=== PATIENT | female | born 1995 | race African-American/Black ===

== ENCOUNTER 2022-11-17 19:55 | Emergency (ER) | payer OTHER ==
[~2022-11-17] VITALS: Ht 162 cm; Wt 95.2 kg
[2022-11-17] MEDS ORDERED: ORPHENADRINE 60 MG/2 ML AMP (ED ONLY) IV ONE (20:00)
[2022-11-17] MEDS ORDERED: KETOROLAC INJ 15 MG/ML VIAL IVP ONE (20:00)
--- NOTE | 2022-11-17 20:05 | ED Chest Pain ---
General Stated Complaint: CHEST PAIN Source: patient Exam Limitations: no limitations History of Present Illness Date Seen by Provider: Nov 17, 2022 Time Seen by Provider: 19:47 Initial Comments 27-year-old female presents to the ER via EMS with complaint of intermittent chest pain since September 09. She states the pain radiates into her right shoulder and right neck. States the pain is worse with moving her head and neck. She denies injury to her shoulder, chest, neck. She states the pain feels like somebody is sitting on her chest. Reports that the pain lasts for a couple minutes at a time, and dissipates for few minutes at a time. She states she has shortness of air with the pain, no shortness of air when the pain is gone. She sees a plasterer spot at [place] for her mitral tricuspid pulmonic insufficiency. Allergies and Home Medications Allergies Coded Allergies: No Known Drug Allergies (Unverified , 11/17/22) Patient Home Medication List Home Medication List Reviewed: Yes Cyclobenzaprine HCl (Cyclobenzaprine HCl) 10 Mg Tablet, 10 MG PO TID Prescribed by: Lorie Tim on 11/17/222123 Review of Systems Review of Systems Constitutional: see HPI Physical Exam Vital Signs Vital Signs - First Documented 11/17/22 19:56 Temp 37.3 Pulse 101 Resp 20 B/P (MAP) 126/98 (107) Pulse Ox 99 O2 Delivery Room Air Capillary Refill : Height, Weight, BMI Height: '" Weight: lbs. oz. kg; BMI Method: General Appearance: No Apparent Distress Neck: Normal Inspection, Supple, Tender Lateral Respiratory: Chest Non Tender, Lungs Clear, Normal Breath Sounds, No Accessory Muscle Use, No Respiratory Distress Cardiovascular: Regular Rate, Rhythm Extremity: Normal Inspection, Normal Range of Motion, No Pedal Edema Neurologic/Psychiatric: Alert, Normal Mood/Affect Skin: Normal Color, Warm/Dry Progress/Results/Core Measures Results/Orders Lab Results Laboratory Tests Test 11/17/22 19:55 Range/Units White Blood Count 9.5 4.3-11.0 10^3/uL Red Blood Count 3.54 L 3.80-5.11 10^6/uL Hemoglobin 9.4 L 11.5-16.0 g/dL Hematocrit 30 L 35-52 % Mean Corpuscular Volume 85 80-99 fL Mean Corpuscular Hemoglobin 27 25-34 pg Mean Corpuscular Hemoglobin Concent 31 L 32-36 g/dL Red Cell Distribution Width 17.0 H 10.0-14.5 % Platelet Count 384 130-400 10^3/uL Mean Platelet Volume 10.3 9.0-12.2 fL Immature Granulocyte % (Auto) 0 % Neutrophils (%) (Auto) 57 42-75 % Lymphocytes (%) (Auto) 33 12-44 % Monocytes (%) (Auto) 8 0-12 % Eosinophils (%) (Auto) 2 0-10 % Basophils (%) (Auto) 0 0-10 % Neutrophils # (Auto) 5.3 1.8-7.8 10^3/uL Lymphocytes # (Auto) 3.1 1.0-4.0 10^3/uL Monocytes # (Auto) 0.8 0.0-1.0 10^3/uL Eosinophils # (Auto) 0.2 0.0-0.3 10^3/uL Basophils # (Auto) 0.0 0.0-0.1 10^3/uL Immature Granulocyte # (Auto) 0.0 0.0-0.1 10^3/uL Prothrombin Time 12.6 12.2-14.7 SEC INR Comment 0.9 0.8-1.4 Activated Partial Thromboplast Time 33 24-35 SEC Sodium Level 139 135-145 MMOL/L Potassium Level 4.4 3.6-5.0 MMOL/L Chloride Level 108 H 98-107 MMOL/L Carbon Dioxide Level 21 21-32 MMOL/L Anion Gap 10 5-14 MMOL/L Blood Urea Nitrogen 13 7-18 MG/DL Creatinine 0.77 0.60-1.30 MG/DL Estimat Glomerular Filtration Rate 108 BUN/Creatinine Ratio 17 Glucose Level 108 H 70-105 MG/DL Calcium Level 8.7 8.5-10.1 MG/DL Corrected Calcium 8.9 8.5-10.1 MG/DL Magnesium Level 2.0 1.6-2.4 MG/DL Total Bilirubin 0.2 0.1-1.0 MG/DL Aspartate Amino Transf (AST/SGOT) 38 H 5-34 U/L Alanine Aminotransferase (ALT/SGPT) 56 H 0-55 U/L Alkaline Phosphatase 92 40-136 U/L Troponin I < 0.028 <0.028 NG/ML Total Protein 7.0 6.4-8.2 GM/DL Albumin 3.8 3.2-4.5 GM/DL My Orders Orders - LORIE STOVALL APRN Cbc With Automated Diff (11/17/22 19:59) Magnesium (11/17/22 19:59) Chest 1 View, Ap/Pa Only (11/17/22 19:59) Ekg Tracing (11/17/22 19:59) Comprehensive Metabolic Panel (11/17/22 19:59) Protime With Inr (11/17/22 19:59) Partial Thromboplastin Time (11/17/22 19:59) Monitor-Rhythm Ecg Trace Only (11/17/22 19:59) Ed Iv/Invasive Line Start (11/17/22 19:59) Troponin I [place] (11/17/22 19:59) Orphenadrine Inj (Ed Only) (Orphenadrine (11/17/22 20:00) Ketorolac Injection (Ketorolac Injection (11/17/22 20:00) Rx-Cyclobenzaprine Tablet (Rx-Flexeril T (11/17/22 21:21) Medications Given in ED Current Medications Medications Dose Ordered Sig/Marty Route Start Time Stop Time Status Last Admin Dose Admin Ketorolac Tromethamine 15 mg ONCE ONCE IVP 11/17/22 20:00 11/17/22 20:01 DC 11/17/22 20:18 15 MG Orphenadrine Citrate 60 mg ONCE ONCE IV 11/17/22 20:00 11/17/22 20:01 DC 11/17/22 20:18 60 MG Vital Signs/I&O 11/17/22 11/17/22 19:56 21:30 Temp 37.3 37.3 Pulse 101 101 Resp 20 20 B/P (MAP) 126/98 (107) 126/98 Pulse Ox 99 99 O2 Delivery Room Air Room Air Progress Progress Note : Progress Note Patient seen and evaluated, resting comfortably in bed, no acute distress. Based on exam and symptoms, cardiac work-up initiated including CBC, CMP, magnesium, coags, troponin, EKG, chest x-ray. Pain seems to be musculoskeletal. Will treat with Toradol and Norflex. 2119 Labs, chest x-ray, EKG reviewed. EKG shows normal sinus rhythm. CBC shows anemia, hemoglobin 9.4, hematocrit 30, MCV normal 85. CMP shows slightly elevated chloride 108, magnesium normal, troponin negative. AST and ALT slightly elevated. Coags normal. Chest x-ray shows no acute cardiopulmonary process. Results discussed with patient. Will discharge patient with prescription for Flexeril. Discharge instructions and return precautions provided. Initial ECG Impression Date: Nov 17, 2022 Initial ECG Impression Time: 20:05 Initial ECG Rate: 93 Initial ECG Rhythm: Normal Sinus Initial ECG Intervals: Normal Initial ECG Impression: Normal Initial ECG Comparisson: No Previous ECG Available Diagnostic Imaging Diagonstic Imaging: Xray Plain Films/CT/US/NM/MRI: chest Comments [facility] [place], [place] NAME: DAVID COOPER [facility] REC#: [id number] PT STATUS: REG ER : 1995 PHYSICIAN: LORIE STOVALL APRN ADMIT DATE: 11/17/22/ER Signed Date of Exam:11/17/22 CHEST 1 VIEW, AP/PA ONLY EXAMINATION: Chest 1 view HISTORY: Chest pain. Headaches. COMPARISON: None available. FINDINGS: The lung volumes are normal. No focal consolidation is seen. No large pleural effusion or pneumothorax is seen. The cardiomediastinal silhouette is normal in size and contour. No acute osseous abnormality is seen. IMPRESSION: 1. No acute pleuroparenchymal process. Dictated by: Dictated on workstation # [id number] Dict: 11/17/222099 Trans: 11/17/222106 [facility] [id number] Interpreted by: NAYE EVANS DO Electronically signed by: NAYE EVANS DO 11/17/222106 Departure Impression Primary Impression: Chest pain Additional Impression: Musculoskeletal pain Disposition: 01 HOME, SELF-CARE Condition: Stable Departure-Patient Inst. Decision time for Depature: 21:23 Patient Instructions: Chest Pain That Is Not Caused by the Heart (DC) Add. Discharge Instructions: Follow-up with your primary care provider. Follow-up with your plasterer spot. Take Flexeril up to 3 times a day as needed for pain. It may make you sleepy. Return for any new, concerning, or worsening symptoms. Scripts Cyclobenzaprine HCl (Cyclobenzaprine HCl) 10 Mg Tablet 10 MG PO TID, #20 TAB 0 Refills Prov: LORIE STOVALL APRN 11/17/22 LORIE STOVALL APRN Nov 17, 2022 20:05
[2022-11-17 20:09] LABS: BASOPHILS % (AUTO) 0 % (0-10); EOSINOPHILS # (AUTO) 0.2 10^3/uL (0.0-0.3); EOSINOPHILS % (AUTO) 2 % (0-10); HEMATOCRIT 30 % (35-52); HEMOGLOBIN 9.4 g/dL (11.5-16.0); LYMPHOCYTES # (AUTO) 3.1 10^3/uL (1.0-4.0); LYMPHOCYTES % (AUTO) 33 % (12-44); MEAN CORPUSCULAR HEMOGLOBIN 27 pg (25-34); MEAN CORPUSCULAR HGB CONC 31 g/dL (32-36); MEAN CORPUSCULAR VOLUME 85 fL (80-99); MEAN PLATELET VOLUME 10.3 fL (9.0-12.2); MONOCYTES # (AUTO) 0.8 10^3/uL (0.0-1.0); MONOCYTES % (AUTO) 8 % (0-12); NEUTROPHILS # (AUTO) 5.3 10^3/uL (1.8-7.8); NEUTROPHILS % (AUTO) 57 % (42-75); PLATELET COUNT 384 10^3/uL (130-400); WHITE BLOOD COUNT 9.5 10^3/uL (4.3-11.0)
[2022-11-17 20:18] LABS: INR 0.9 (0.8-1.4); PROTHROMBIN TIME PATIENT 12.6 SEC (12.2-14.7)
[2022-11-17 20:32] LABS: ALANINE AMINOTRANSFERASE 56 U/L (0-55); ALBUMIN 3.8 GM/DL (3.2-4.5); ALKALINE PHOSPHATASE 92 U/L (40-136); BILIRUBIN,TOTAL 0.2 MG/DL (0.1-1.0); BUN/CREATININE RATIO 17; CALCIUM 8.7 MG/DL (8.5-10.1); CARBON DIOXIDE 21 MMOL/L (21-32); CHLORIDE 108 MMOL/L (98-107); CREATININE SERUM 0.77 MG/DL (0.60-1.30); GFR ESTIMATED 108; GLUCOSE 108 MG/DL (70-105); POTASSIUM 4.4 MMOL/L (3.6-5.0); SODIUM 139 MMOL/L (135-145)
--- NOTE | 2022-11-17 21:05 | Diagnostic Imaging Report ---
EXAMINATION: Chest 1 view HISTORY: Chest pain. Headaches. COMPARISON: None available. FINDINGS: The lung volumes are normal. No focal consolidation is seen. No large pleural effusion or pneumothorax is seen. The cardiomediastinal silhouette is normal in size and contour. No acute osseous abnormality is seen. IMPRESSION: 1. No acute pleuroparenchymal process. Dictated by: Dictated on workstation # [id number]
[2022-11-17] MEDS ORDERED: RX-CYCLOBENZAPRINE 10 MG (FLEXERIL) TAB PPK#3 PO STA (21:21)
[2022-11-17] MEDS ORDERED: CYCL10TA25 PO (21:24)
[2022-11-17 21:30] VITALS: BP 126/98
== END 2022-11-17 21:30 | disposition home or self-care (01) ==
LOC: EDUNIT# 19:55 → ER 19:56
DX: R07.9 Chest pain, unspecified (principal); R51.9 Headache, unspecified; M54.2 Cervicalgia; D64.9 Anemia, unspecified
CPT/HCPCS: 36415; 71045; 80053; 83735; 84484; 85025; 85610; 85730; 93005; 93041

== ENCOUNTER → 2022-11-22 | Outpatient (CLI) | payer OTHER ==
[~2022-11-22] MED LIST: CYCL10TA25 PO
--- NOTE | 2022-11-22 10:33 | Diagnostic Imaging Report ---
INDICATION: Incomplete bladder emptying. Limited pelvic ultrasound was performed to evaluate the bladder. Prevoid bladder volume is 125 mL. Postvoid volume is 121 mL. Bilateral ureteral jets were visualized. No bladder wall thickening or mass is identified. IMPRESSION: Moderate postvoid residual bladder volume. No other abnormality is detected. Dictated by: Dictated on workstation # [id number]
== END ==
LOC: RAD 09:55
PROVIDERS: ATTEND Nurse Practitioner Family
DX: R33.9 Retention of urine, unspecified (principal)
CPT/HCPCS: 76857

== ENCOUNTER 2022-12-08 17:39 | Emergency (ER) | payer OTHER ==
[~2022-12-08] VITALS: Ht 170 cm; Wt 104.0 kg
--- NOTE | 2022-12-08 18:04 | ED Abdominal Pain ---
General Stated Complaint: ABD PAIN, RADIATING TO LOWER BACK, BLOATED Source of Information: Patient History of Present Illness Date Seen by Provider: Dec 08, 2022 Time Seen by Provider: 17:50 Initial Comments PT ARRIVES VIA POV C/O LOWER ABDOMINAL PAIN AND LOWER BACK PAIN FOR "COUPLE OF MONTHS OR LONGER" + NAUSEA, VOMITED X 2 TODAY HAD BM THIS AM--CONSTIPATED "BIG HARD BALLS" HAS CHRONIC URINARY ISSUES--PROBLEMS EMPTYING BLADDER, NO DIFFERENT TODAY NO FEVER HAS BEEN HAVING IRREGULAR VAGINAL BLEEDING FOR MONTHS 1 WEEK AGO, SHE HAD BRIGHT RED BLOOD WITH CLOTS FOR 2 DAYS, THEN YESTERDAY AND TODAY SHE HAS BEEN HAVING "BROWN BLOOD AND PASSED A CLOT" TODAY PT IS NOT ON CONTROL TOOK 1 IBUPROFEN AND 1 TYLENOL YESTERDAY/LAST NIGHT HAS NOT TAKEN ANYTHING TODAY FOR PAIN SHE HAS NOT SOUGHT CARE AT ANY TIME FOR THIS SYMPTOMS NO DIFFERENT TODAY SHE WAS HERE 11/17/22 FOR C/O CHEST PAIN--WORK UP WAS BENIGN AT THAT TIME--PT'S ONLY OTHER VISIT HERE STATES SHE HAS BEEN TO [facility] "EVERY WEEK FOR THE LAST COUPLE OF MONTHS" --BUT HAS NOT DISCUSSED THIS PROBLEM STATES HE WAS THERE YESTERDAY FOR DENTAL PAIN --GIVEN RX FOR AMOXIL PT IS CURRENTLY AT [facility]--PT IS AN IV METHAMPHETAMINE USER. SHE DENIES ANY RECENT USE DENIES ALCOHOL USE SHE VAPES AND SMOKES PT WAS IN [facility] IN [place] FOR 2 MONTHS, GOT OUT NOV 03. SHE CLAIMS SHE HAS BEEN ON MULTIPLE ANTIBIOTICS FOR THE LAST COUPLE OF MONTHS, BUT DOES NOT KNOW WHAT ANTIBIOTICS OR WHAT SHE WAS BEING TREATED FOR. HAS HAD X 4, NO OTHER ABDOMINAL SURGERIES DENIES ANY OTHER MEDICAL PROBLEMS PCP: [facility] Allergies and Home Medications Allergies Coded Allergies: No Known Drug Allergies (Unverified , 11/17/22) Patient Home Medication List Home Medication List Reviewed: Yes Cyclobenzaprine HCl (Cyclobenzaprine HCl) 10 Mg Tablet, 10 MG PO TID Prescribed by: Lorie Tim on 11/17/222123 Doxycycline Hyclate (Doxycycline Hyclate) 100 Mg Tablet, 100 MG PO BID Prescribed by: CRISTOBAL BOWER on 12/08/221910 Ketorolac Tromethamine (Ketorolac Tromethamine) 10 Mg Tablet, 10 MG PO Q6H Prescribed by: CRISTOBAL BOWER on 12/08/221910 Metronidazole (Metronidazole) 500 Mg Tablet, 500 MG PO QID Prescribed by: CRISTOBAL BOWER on 12/08/221910 Review of Systems Review of Systems Constitutional: no symptoms reported Respiratory: No Symptoms Reported Cardiovascular: No Symptoms Reported Gastrointestinal: See HPI Genitourinary: See HPI Musculoskeletal: see HPI Skin: no symptoms reported Psychiatric/Neurological: No Symptoms Reported Endocrine: No Symptoms Reported Hematologic/Lymphatic: No Symptoms Reported Past Hucvrsj-Gatfhg-Najjku Hx Patient Social History Tobacco Use?: Yes Tobacco type used: Cigarettes Smoking Status: Current Everyday Smoker Use of E-Cig and/or Vaping dev: Yes E-Cig or Vaping type used: Nicotine Use of E-Cig and/or Vaping Ming: Current Everyday User Substance use?: Yes Substance type: Methamphetamine Additional substance use comme: +IV METH USE Substance frequency: Daily Alcohol Use?: No Past Medical History Surgery/Hospitalization HX: Mitral Triscupid Insuff Surgeries: Yes ( X 4) Section, Tonsillectomy Respiratory: No Cardiac: 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 oz. kg; 36.00 BMI Method: General Appearance: WD/WN, no apparent distress, other (CONSTANT MOVEMENTS) HEENT: other (EXTENSIVE DENTAL DECAY WITH MULTIPLE MISSING TEETH AND REMAINING TEEHT DECAYED DOWN TO GUMS) Respiratory: normal breath sounds, no respiratory distress, no accessory muscle use Cardiovascular: regular rate, rhythm, no edema, no JVD, no murmur Gastrointestinal: normal bowel sounds, soft, no organomegaly, no pulsatile mass; No distended, No guarding, No rebound; tenderness (DIFFUSE TENDERNESS, BUT IS MOST TENDER IN RLQ > LLQ); No hernia, No mass Extremities: normal inspection, normal capillary refill Back: normal inspection, no CVA tenderness Pelvic: normal external exam, no masses, discharge, tender w/ cervical motion (MARKED), tender adnexa (ON RIGHT), tender uterus, other (SCANT AMOUNT OF BROWN DISCHARGE) 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, no motor/sensory deficits, alert, oriented x 3 Skin: normal color, warm/dry Progress/Results/Core Measures Results/Orders Lab Results Laboratory Tests Test 12/08/22 17:59 12/08/22 18:12 12/08/22 19:00 Range/Units Urine Color YELLOW Urine Clarity CLEAR Urine pH 5.5 5-9 Urine Specific Cameron >=1.030 1.016-1.022 Urine Protein NEGATIVE NEGATIVE Urine Glucose (UA) NEGATIVE NEGATIVE Urine Ketones NEGATIVE NEGATIVE Urine Nitrite NEGATIVE NEGATIVE Urine Bilirubin NEGATIVE NEGATIVE Urine Urobilinogen 0.2 < = 1.0 MG/DL Urine Leukocyte Esterase NEGATIVE NEGATIVE Urine RBC (Auto) 2+ H NEGATIVE Urine RBC RARE /HPF Urine WBC 0-2 /HPF Urine Squamous Epithelial Cells 2-5 /HPF Urine Crystals NONE /LPF Urine Bacteria TRACE /HPF Urine Casts NONE /LPF Urine Mucus NEGATIVE /LPF Urine Culture Indicated NO Urine Opiates Screen NEGATIVE NEGATIVE Urine Oxycodone Screen NEGATIVE NEGATIVE Urine Methadone Screen NEGATIVE NEGATIVE Urine Propoxyphene Screen NEGATIVE NEGATIVE Urine Barbiturates Screen NEGATIVE NEGATIVE Ur Tricyclic Antidepressants Screen POSITIVE H NEGATIVE Urine Phencyclidine Screen NEGATIVE NEGATIVE Urine Amphetamines Screen NEGATIVE NEGATIVE Urine Methamphetamines Screen NEGATIVE NEGATIVE Urine Benzodiazepines Screen POSITIVE H NEGATIVE Urine Cocaine Screen NEGATIVE NEGATIVE Urine Cannabinoids Screen NEGATIVE NEGATIVE White Blood Count 9.5 4.3-11.0 10^3/uL Red Blood Count 3.91 3.80-5.11 10^6/uL Hemoglobin 10.0 L 11.5-16.0 g/dL Hematocrit 32 L 35-52 % Mean Corpuscular Volume 81 80-99 fL Mean Corpuscular Hemoglobin 26 25-34 pg Mean Corpuscular Hemoglobin Concent 32 32-36 g/dL Red Cell Distribution Width 16.4 H 10.0-14.5 % Platelet Count 374 130-400 10^3/uL Mean Platelet Volume 9.8 9.0-12.2 fL Immature Granulocyte % (Auto) 1 % Neutrophils (%) (Auto) 50 42-75 % Lymphocytes (%) (Auto) 37 12-44 % Monocytes (%) (Auto) 10 0-12 % Eosinophils (%) (Auto) 2 0-10 % Basophils (%) (Auto) 1 0-10 % Neutrophils # (Auto) 4.7 1.8-7.8 10^3/uL Lymphocytes # (Auto) 3.5 1.0-4.0 10^3/uL Monocytes # (Auto) 0.9 0.0-1.0 10^3/uL Eosinophils # (Auto) 0.2 0.0-0.3 10^3/uL Basophils # (Auto) 0.1 0.0-0.1 10^3/uL Immature Granulocyte # (Auto) 0.1 0.0-0.1 10^3/uL Percent Immature Platelet Fraction 2.7 0.0-7.6 % Sodium Level 138 135-145 MMOL/L Potassium Level 4.2 3.6-5.0 MMOL/L Chloride Level 106 98-107 MMOL/L Carbon Dioxide Level 21 21-32 MMOL/L Anion Gap 11 5-14 MMOL/L Blood Urea Nitrogen 12 7-18 MG/DL Creatinine 0.74 0.60-1.30 MG/DL Estimat Glomerular Filtration Rate 113 BUN/Creatinine Ratio 16 Glucose Level 77 70-105 MG/DL Calcium Level 8.9 8.5-10.1 MG/DL Corrected Calcium 9.0 8.5-10.1 MG/DL Total Bilirubin 0.2 0.1-1.0 MG/DL Aspartate Amino Transf (AST/SGOT) 39 H 5-34 U/L Alanine Aminotransferase (ALT/SGPT) 46 0-55 U/L Alkaline Phosphatase 140 H 40-136 U/L Total Protein 7.5 6.4-8.2 GM/DL Albumin 3.9 3.2-4.5 GM/DL Amylase Level 81 25-125 U/L Lipase 30 8-78 U/L Serum Alcohol < 10 <10 MG/DL Smear Scan YES Micro Results Microbiology My Orders Orders - CRISTOBAL BOWER DO Ed Iv/Invasive Line Start (12/08/22 17:53) Urine Bedside (12/08/22 17:53) Amylase (12/08/22 17:53) Cbc And Automated Diff (12/08/22 17:53) Comprehensive Metabolic Panel (12/08/22 17:53) Drug Screen Stat (Urine) (12/08/22 17:53) Lipase (12/08/22 17:53) Ua Culture If Indicated (12/08/22 17:53) Alcohol (12/08/22 17:58) Ct Abd/Pelv W (Appendicitis) (12/08/22 18:31) Iohexol Injection (Omnipaque 350 Mg/Ml 1 (12/08/22 18:45) Received Contrast (Hold Metformin- Contr (12/08/22 18:45) Ns (Ivpb) 100 Ml (Sodium Chloride 0.9% 1 (12/08/22 18:45) Neisseria Gonorrhea Swab (12/08/22 19:01) Chlam Dna Probe (12/08/22 19:01) Genital Culture (12/08/22 19:01) Wet Prep (12/08/22 19:01) Ceftriaxone Iv/Im (Ceftriaxone Iv/Im) (12/08/22 19:01) Azithromycin Tablet (Azithromycin Tabl (12/08/22 19:01) Ketorolac Injection (Ketorolac Injection (12/08/22 19:01) Rpr With Fta-Abs Reflex If Pos (12/08/22 19:01) Hepatitis Panel Acute (12/08/22 19:56) Hiv 1/2 Antibody (12/08/22 19:56) Medications Given in ED Current Medications Medications Dose Ordered Sig/Marty Route Start Time Stop Time Status Last Admin Dose Admin Iohexol 100 ml ONCE ONCE IV 12/08/22 18:45 12/08/22 18:46 DC 12/08/22 18:48 80 ML Sodium Chloride 100 ml ONCE ONCE IV 12/08/22 18:45 12/08/22 18:46 DC 12/08/22 18:48 80 ML Vital Signs/I&O 12/08/22 12/08/22 18:01 19:37 Temp 37.3 Pulse 86 Resp 16 B/P (MAP) 157/99 (118) 137/76 Pulse Ox 98 O2 Delivery Room Air Progress Progress Note : Progress Note VITALS ON ARRIVAL: TEMP 37.3=99.2, HR 86, RR 16, BP 157/99, O2 SAT 98% ON ROOM AIR GIVEN: -TORADOL -ROCEPHIN + ZITHROMAX LABS: -CBC NORMAL -CMP NORMAL -AMYLASE/LIPASE -HCG NEGATIVE -ETOH NEGATIVE -UDS + TRICYCLICS AND BENZO'S -UA UNREMARKABLE GENITAL CULTURES PENDING ADDITIONAL TESTS FOR HIV, HEPATITIS, SYPHILIS PENDING CT SCAN SHOWS CONSTIPATION, NO ACUTE PROCESS DISCUSSED TEST RESULTS, ANTICIPATED COURSE, SYMPTOMATIC TREATMENT, MEDICATIONS, NEED FOR FOLLOW UP AND RETURN PRECAUTIONS REVIEWED PRIOR ER RECORD Diagnostic Imaging Comments CT ABDOMEN/PELVIS--PER RADIOLOGIST REPORT AT 1908 FINDINGS: The visualized lung bases are clear. The bones show no significant abnormality. The liver, spleen, pancreas, gallbladder, and adrenal glands are unremarkable. Both kidneys are unremarkable with no hydronephrosis, stone, or mass. The bladder is fluid-filled and otherwise unremarkable. The uterus and adnexal structures are unremarkable as visualized on CT. There is very minimal free fluid in the pelvis which may be physiologic. There is a moderate to large amount of stool seen throughout the colon from the rectum all the way to the right colon. There is no evidence of intestinal obstruction. The appendix is unremarkable. There is no intra-abdominal free air. There is no lymphadenopathy. There is a moderately distended stomach with ingested material noted. The extraabdominal and extrapelvic soft tissue structures are unremarkable. IMPRESSION: 1: There is a moderate to large amount of stool throughout the colon which may be seen with constipation. There is no intestinal obstruction. 2: The remainder of this CT exam shows no other significant abnormality. There is no significant abnormality in the pelvis seen. Reviewed: Reviewed by Me Departure Impression Primary Impression: PID (acute pelvic inflammatory disease) Additional Impressions: Irregular menstrual bleeding Constipation Disposition: 01 HOME, SELF-CARE Condition: Stable Departure-Patient Inst. Decision time for Depature: 19:10 Referrals: [facility] (PCP/Family) Primary Care Physician Patient Instructions: Bleeding Between Periods, Constipation, Adult (DC), Pelvic Inflammatory Disease ED Add. Discharge Instructions: TAKE MIRALAX DAILY INCREASE YOUR WATER AND FIBER INTAKE NOTHING IN VAGINA--NO TAMPONS, DOUCHING OR INTERCOURSE FOLLOW UP WITH [facility] IN 7-10 DAYS FOR FURTHER CARE--CALL IN THE MORNING TO SCHEDULE AN APPOINTMENT Scripts Ketorolac Tromethamine (Ketorolac Tromethamine) 10 Mg Tablet 10 MG PO Q6H for Pain, #15 TAB Prov: CRISTOBAL BOWRE DO 12/08/22 Metronidazole (Metronidazole) 500 Mg Tablet 500 MG PO QID, #40 TAB Prov: CRISTOBAL BOWER DO 12/08/22 Doxycycline Hyclate (Doxycycline Hyclate) 100 Mg Tablet 100 MG PO BID, #20 TAB 0 Refills Prov: CRISTOBAL BOWER DO 12/08/22 Work/School Note: Work Release Form Date Seen in the Emergency Department: Dec 08, 2022 CRISTOBAL BOWER DO Dec 08, 2022 18:04
[2022-12-08 18:19] LABS: BASOPHILS # (AUTO) 0.1 10^3/uL (0.0-0.1); BASOPHILS % (AUTO) 1 % (0-10); EOSINOPHILS # (AUTO) 0.2 10^3/uL (0.0-0.3); EOSINOPHILS % (AUTO) 2 % (0-10); HEMATOCRIT 32 % (35-52); LYMPHOCYTES # (AUTO) 3.5 10^3/uL (1.0-4.0); LYMPHOCYTES % (AUTO) 37 % (12-44); MEAN CORPUSCULAR HEMOGLOBIN 26 pg (25-34); MEAN CORPUSCULAR HGB CONC 32 g/dL (32-36); MEAN CORPUSCULAR VOLUME 81 fL (80-99); MEAN PLATELET VOLUME 9.8 fL (9.0-12.2); MONOCYTES # (AUTO) 0.9 10^3/uL (0.0-1.0); MONOCYTES % (AUTO) 10 % (0-12); NEUTROPHILS # (AUTO) 4.7 10^3/uL (1.8-7.8); NEUTROPHILS % (AUTO) 50 % (42-75); PLATELET COUNT 374 10^3/uL (130-400); WHITE BLOOD COUNT 9.5 10^3/uL (4.3-11.0)
[2022-12-08 18:20] LABS: SMEAR SCAN COMMENT YES
[2022-12-08 18:27] LABS: ALBUMIN 3.9 GM/DL (3.2-4.5); CHLORIDE 106 MMOL/L (98-107); POTASSIUM 4.2 MMOL/L (3.6-5.0); SODIUM 138 MMOL/L (135-145)
[2022-12-08 18:28] LABS: AMYLASE 81 U/L (25-125)
[2022-12-08 18:28] LABS: BACTERIA,URINE TRACE /HPF; BILIRUBIN,URINE NEGATIVE (NEGATIVE); CLARITY,URINE CLEAR; COLOR,URINE YELLOW; GLUCOSE, URINE (UA) NEGATIVE (NEGATIVE); KETONES,URINE NEGATIVE (NEGATIVE); LEUKOCYTE ESTERASE ,URINE NEGATIVE (NEGATIVE); NITRITE,URINE NEGATIVE (NEGATIVE); PH,URINE 5.5 (5-9); PROTEIN,URINE NEGATIVE (NEGATIVE); RBC,URINE RARE /HPF; WBC,URINE 0-2 /HPF
[2022-12-08 18:29] LABS: CALCIUM 8.9 MG/DL (8.5-10.1)
[2022-12-08 18:30] LABS: AMPHETAMINE SCREEN, URINE NEGATIVE (NEGATIVE); BARBITURATE SCREEN URINE NEGATIVE (NEGATIVE); CANNABINOID SCREEN, URINE NEGATIVE (NEGATIVE); COCAINE SCREEN URINE NEGATIVE (NEGATIVE); METHADONE STAT NEGATIVE (NEGATIVE); OPIATE SCREEN URINE NEGATIVE (NEGATIVE); OXYCODONE STAT NEGATIVE (NEGATIVE); PROPOXYPHENE STAT NEGATIVE (NEGATIVE); TRICYCLIC ANTIDEPRESSANTS SCRE POSITIVE (NEGATIVE)
[2022-12-08 18:30] LABS: GLUCOSE 77 MG/DL (70-105); TOTAL PROTEIN 7.5 GM/DL (6.4-8.2)
[2022-12-08 18:31] LABS: CARBON DIOXIDE 21 MMOL/L (21-32)
[2022-12-08 18:32] LABS: BILIRUBIN,TOTAL 0.2 MG/DL (0.1-1.0)
[2022-12-08 18:33] LABS: ALKALINE PHOSPHATASE 140 U/L (40-136); CREATININE SERUM 0.74 MG/DL (0.60-1.30); GFR ESTIMATED 113
[2022-12-08 18:35] LABS: BUN/CREATININE RATIO 16
[2022-12-08 18:36] LABS: ALANINE AMINOTRANSFERASE 46 U/L (0-55)
[2022-12-08 18:37] LABS: LIPASE 30 U/L (8-78)
[2022-12-08] MEDS ORDERED: HOLD METFORMIN - RECEIVED CONTRAST 20 ML VIAL IV SCH (18:45)
[2022-12-08] MEDS ORDERED: IOHEXOL 350 MG/ML 100 ML (OMNIPAQUE 350) VIAL IV ONE (18:45)
[2022-12-08] MEDS ORDERED: NS 100 ML (IVPB) BAG IV ONE (18:45)
[2022-12-08] MEDS ORDERED: AZITHROMYCIN 250 MG TABLET PO STA (19:01)
[2022-12-08] MEDS ORDERED: KETOROLAC INJ 30 MG/ML VIAL IVP STA (19:01)
[2022-12-08] MEDS ORDERED: cefTRIAXone IV/IM 1,000 MG in NS (IVPB) 50 ML 50 ML IV STA (19:01)
--- NOTE | 2022-12-08 19:07 | Diagnostic Imaging Report ---
CLINICAL INDICATION: Patient with lower abdominal pain which radiates to her back. Patient having caramel-like vaginal discharge. Last intercourse was 2 months ago and last period was 1 week ago. EXAM: Axial CT scan of the abdomen and pelvis performed with 80 cc of Omnipaque 350 IV contrast. Sagittal and coronal reformatted images were created. Auto Exposure Controls were utilized during the CT exam to meet ALARA standards for radiation dose reduction. COMPARISON: Ultrasound of the pelvis dated 11/22/2022. FINDINGS: The visualized lung bases are clear. The bones show no significant abnormality. The liver, spleen, pancreas, gallbladder, and adrenal glands are unremarkable. Both kidneys are unremarkable with no hydronephrosis, stone, or mass. The bladder is fluid-filled and otherwise unremarkable. The uterus and adnexal structures are unremarkable as visualized on CT. There is very minimal free fluid in the pelvis which may be physiologic. There is a moderate to large amount of stool seen throughout the colon from the rectum all the way to the right colon. There is no evidence of intestinal obstruction. The appendix is unremarkable. There is no intra-abdominal free air. There is no lymphadenopathy. There is a moderately distended stomach with ingested material noted. The extraabdominal and extrapelvic soft tissue structures are unremarkable. IMPRESSION: 1: There is a moderate to large amount of stool throughout the colon which may be seen with constipation. There is no intestinal obstruction. 2: The remainder of this CT exam shows no other significant abnormality. There is no significant abnormality in the pelvis seen. Dictated by: Dictated on workstation # [id number]
[2022-12-08] MEDS ORDERED: METR-145 PO (19:11)
[2022-12-08] MEDS ORDERED: KETO10TA PO (19:11)
[2022-12-08] MEDS ORDERED: DOXY100T2 PO (19:11)
[2022-12-08 19:37] VITALS: BP 137/76
== END 2022-12-08 19:37 | disposition home or self-care (01) ==
LOC: EDUNIT# 17:39 → ER 17:42
DX: N73.9 Female pelvic inflammatory disease, unspecified (principal); K59.00 Constipation, unspecified; N92.6 Irregular menstruation, unspecified; F17.210 Nicotine dependence, cigarettes, uncomplicated
CPT/HCPCS: 74177; 80053; 80306; 81000; 82150; 83690; 84703; 85025; 87070; 87205; 87210; 87491; 87591; 99284; G0480; 36415; 80320

== ENCOUNTER 2022-12-17 11:18 | Emergency (ER) | payer OTHER ==
[~2022-12-17] VITALS: Ht 162 cm; Wt 102.0 kg
[~2022-12-17 11:18] MED LIST changes: +DOXY100T2 PO; +KETO10TA PO; +METR-145 PO
[2022-12-17] MEDS ORDERED: KETOROLAC INJ 30 MG/ML VIAL IM ONE (11:30)
--- NOTE | 2022-12-17 11:32 | ED GU-Female ---
General Chief Complaint: - Reproductive Stated Complaint: URINATION ISSUES Nursing Triage Note: PT TO [facility] WITH CC OF DX WITH PID, IS ON ABX, LOW ABD PAIN Source: patient History of Present Illness Date Seen by Provider: Dec 17, 2022 Time Seen by Provider: 11:27 Initial Comments 27-year-old female who has been diagnosed with PID, is on antibiotics and is scheduled for urologic follow-up tomorrow in [place] presents with persistent pelvic pain. She denies any new symptoms. States "it just hurts "she states she has a "collapsed bladder "as well. Patient states she is concerned because she cannot make her appointment tomorrow due to location advised her to contact the office to determine more accessible plan for her. As this is a chronic problem advised her we will provide Toradol for pain we will also collect UA to ensure no new infection. Patient agrees. She did have to be reminded not to vape in the hospital room Timing/Duration: constant Severity/Quality: moderate Location: vaginal, other (Pelvic) Radiation: none Activities at Onset: none Prior Genitourinary Problems: similar symptoms Associated Symptoms: denies symptoms Allergies and Home Medications Allergies Coded Allergies: No Known Drug Allergies (Unverified , 11/17/22) Patient Home Medication List Home Medication List Reviewed: Yes Cyclobenzaprine HCl (Cyclobenzaprine HCl) 10 Mg Tablet, 10 MG PO TID Prescribed by: Lorie Tim on 11/17/222123 Doxycycline Hyclate (Doxycycline Hyclate) 100 Mg Tablet, 100 MG PO BID Prescribed by: CRISTOBAL BOWER on 12/08/221910 Ibuprofen (Ibuprofen) 800 Mg Tablet, 800 MG PO Q8H PRN for PAIN Prescribed by: Zakiya Lutz on 12/17/22 1148 Ketorolac Tromethamine (Ketorolac Tromethamine) 10 Mg Tablet, 10 MG PO Q6H Prescribed by: CRISTOBAL BOWER on 12/08/221910 Metronidazole (Metronidazole) 500 Mg Tablet, 500 MG PO QID Prescribed by: CRISTOBAL BOWER on 12/08/221910 Review of Systems Review of Systems Constitutional: no symptoms reported EENTM: no symptoms reported Respiratory: no symptoms reported Cardiovascular: no symptoms reported Gastrointestinal: no symptoms reported Genitourinary: see HPI Musculoskeletal: no symptoms reported Skin: no symptoms reported Psychiatric/Neurological: No Symptoms Reported Endocrine: No Symptoms Reported Hematologic/Lymphatic: No Symptoms Reported All Other Systemes Reviewed Negative Unless Noted: Yes Past Frepzod-Iuofqy-Xlenwg Hx Past Medical History Surgery/Hospitalization HX: Mitral Triscupid Insuff Surgeries: Yes ( X 4) Section, Tonsillectomy Respiratory: No 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 oz. 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, no motor/sensory deficits, alert, normal mood/affect, oriented x 3 Skin: normal color, warm/dry Progress/Results/Core Measures Suspected Sepsis SIRS Temperature: Pulse: 88 Respiratory Rate: 18 Blood Pressure 140 /73 Mean: 95 Results/Orders Lab Results Laboratory Tests Test 12/17/22 11:40 Range/Units Urine Color YELLOW Urine Clarity CLOUDY H Urine pH 6.0 5-9 Urine Specific [place] >=1.030 1.016-1.022 Urine Protein NEGATIVE NEGATIVE Urine Glucose (UA) NEGATIVE NEGATIVE Urine Ketones NEGATIVE NEGATIVE Urine Nitrite NEGATIVE NEGATIVE Urine Bilirubin NEGATIVE NEGATIVE Urine Urobilinogen 0.2 < = 1.0 MG/DL Urine Leukocyte Esterase NEGATIVE NEGATIVE Urine RBC (Auto) NEGATIVE NEGATIVE Urine RBC NONE /HPF Urine WBC NONE /HPF Urine Squamous Epithelial Cells 10-25 H /HPF Urine Crystals NONE /LPF Urine Leucine Crystals /LPF Urine Bacteria MODERATE H /HPF Urine Casts NONE /LPF Urine Mucus NEGATIVE /LPF Urine Culture Indicated NO My Orders Orders - ZAKIYA LUTZ DO Ua Culture If Indicated (12/17/22 11:25) Ketorolac Injection (Ketorolac Injection (12/17/22 11:30) Medications Given in ED Current Medications Medications Dose Ordered Sig/Marty Route Start Time Stop Time Status Last Admin Dose Admin Ketorolac Tromethamine 30 mg ONCE ONCE IM 12/17/22 11:30 12/17/22 11:31 DC 12/17/22 11:36 30 MG Vital Signs/I&O 12/17/22 12/17/22 11:19 11:36 Temp 36.9 36.9 Pulse 88 Resp 18 B/P (MAP) 140/73 (95) Pulse Ox 100 O2 Delivery Room Air Capillary Refill : Blood Pressure Mean: 95 Progress Note : Progress Note 1130 patient is lying left lateral recumbent on the cot, she is sleeping, advised her that this is not allowed in the hospital room. Patient voices understanding and apologizes. States she is having chronic persistent pain states she has been seen and evaluated for this in the past had a pelvic exam recently was told she had quite a bit of inflammation. She was diagnosed with PID. She is on doxycycline and Flagyl and has an appointment with urology tomorrow but is concerned that she will not be able to get there. She did come by ambulance today. She was able to walk into the room. She denies any bleeding vaginally or rectally no nausea vomiting no fever no abdominal di stention or significant increase in pain. She states she was told she has a collapsed bladder on top of PID. Will obtain urinalysis to ensure no worsening infection, will provide Toradol injection intramuscular, patient agrees with this. Advised she will need to contact the clinic where she is supposed to have her appointment tomorrow and discuss either alternative location or try to figure out a way to get there if there is any medical transportation availability to her. Patient agrees. Advise drink plenty water. Prior cultures reviewed from her visit on the sixth. Microbiology negative for gonorrhea chlamydia, few clue cells on cervical exam, no evidence of communicable disease or infection. Again patient is on Flagyl and doxycycline already. She also states that she would like a work note today. We will provide her documentation stating that she was here. Will prescribe ibuprofen for her discomfort. 1209 urine has been resulted. Appears contaminated with squamous epithelial cells no indication for culture will not change antibiotics or treatment. Patient will be discharged home at this time Departure Impression Primary Impression: Pelvic pain Disposition: HOME, SELF-CARE Condition: Stable Departure-Patient Inst. Referrals: [facility] (PCP/Family) Primary Care Physician Patient Instructions: Pelvic Pain Scripts Ibuprofen (Ibuprofen) 800 Mg Tablet 800 MG PO Q8H PRN for PAIN, #30 TAB 0 Refills Prov: ZAKIYA LUTZ DO 12/17/22 Work/School Note: Work Release Form Return to Work: Dec 17, 2022 ZAKIYA LUTZ DO Dec 17, 2022 11:32
[2022-12-17] MEDS ORDERED: IBUP-1780 PO (11:48)
[2022-12-17 12:00] LABS: CLARITY,URINE CLOUDY; COLOR,URINE YELLOW; PROTEIN,URINE NEGATIVE (NEGATIVE)
[2022-12-17 12:01] LABS: BILIRUBIN,URINE NEGATIVE (NEGATIVE); GLUCOSE, URINE (UA) NEGATIVE (NEGATIVE); KETONES,URINE NEGATIVE (NEGATIVE); LEUKOCYTE ESTERASE ,URINE NEGATIVE (NEGATIVE); NITRITE,URINE NEGATIVE (NEGATIVE)
[2022-12-17 12:02] LABS: BACTERIA,URINE MODERATE /HPF
[2022-12-17 12:17] VITALS: BP 140/73
== END 2022-12-17 12:17 | disposition home or self-care (01) ==
LOC: EDUNIT# 11:18 → ER 11:19
DX: R10.2 Pelvic and perineal pain (principal)
CPT/HCPCS: 81000; 99284